=== PATIENT | female | born 1985 | race Caucasian/White ===

== ENCOUNTER 2018-03-02 12:47 | Emergency (ER) | payer SELFPAY ==
[2018-03-02] VITALS (64 sets, daily range): BP systolic 125–185; BP diastolic 82–120; PULSE 68–102; RESP 10–32; TEMP 36.7; O2SAT 91–100
--- NOTE | 2018-03-02 12:51 | ED.GENADUL_ITS ---
Discharge Plan Disposition Patient Disposition: HOME Condition: Stable Discharge Details Chief Complaint: Chest Pain Clinical Impression: Chest discomfort, Hypertension, Multiple thyroid nodules, Pancreatic abnormality Primary Care Provider: Michelle Fernandez ED Provider: Payal Millard Home Meds and New Rx's Prescriptions: New citalopram 10 mg tablet 30 mg PO DAILY Qty: 90 RF: 0 losartan 100 mg tablet 100 mg PO DAILY Qty: 30 RF: 0 Discontinued citalopram 10 mg Tablet RF: 0 losartan 25 mg Tablet RF: 0 Discharge Instructions Instructions: Chest Pain (ED), Hypertension (ED) Additional Instructions: Please return immediately to the emergency department if you develop any new or worsening symptoms or if you become otherwise concerned. It is extremely important that you are seen by her primary care doctor within the next week and follow-up for this visit. You need follow-up for hypertension, your chest discomfort that you were seen here for today, the abnormal findings of possible thyroid nodules, and abnormality of the appearance of the pancreas on CT scan. Please call [phone] if you have any difficulty establishing this appointment. Discharge Data Discharge Date/Time-TO BE ENTERED AT DEPARTURE: 03/02/18 20:38 Medical Decision Making Amee Pearl is a 33-year-old woman with a history of hypertension and anxiety presenting to the emergency department with 3 days of a feeling of an air pocket in her chest that she states is not painful but is bothersome. Patient is very well and nontoxic appearing on exam, appears mildly anxious. Hypert ensive, other benign cardiopulmonary exam. Patient does not appear to be uncomfortable. Concern for pleurisy versus costochondritis versus esophageal etiology versus PE, some possible anxiety component. Doubt ACS or hypertensive emergency. Doubt acute aortic etiology. Plan for EKG, screening labs, chest x- ray, telemetry, IV, ativan. Will monitor and reassess. Patient reports that sensation in her chest is unchanged after Ativan. She reports that her diastolic blood pressure is always between 90 and 100 when she is not taking blood pressure medication. She is unsure what her systolic blood pressure is. Labs okay. Chest x-ray okay. Pt has medication bottles from last prescription with her, will give her her home dose of losartan and citalopram. Patient reports symptoms completely unchanged. Plan for repeat troponin, repeat EKG. Will give nitroglycerin for pain. Patient reports pain completely unchanged. Blood pressure somewhat improved at 140/90. Low suspicion for aortic dissection at this time, but given patient's persistent hypertension we will plan for imaging. Patient's blood pressure 126/80. She reports no change in her symptoms at this time. Patient did report some mild nausea, Zofran given. Patient laughing in exam room, requesting crackers, drinking Mountain Dew. CTA shows possible thyroid nodules, possible pancreatic mass, motion artifact cannot fully rule out ascending aortic dissection, no PE. Given my low suspicion for aortic dissection, no further imaging indicated at this time. I do not suspect patient's symptoms are related to hypertensive emergency given significant decrease in blood pressure with no change in symptoms. Lengthy discussion with patient regarding incidental findings of thyroid and pancreas, importance of follow-up for these findings in addition to follow-up for hypertension and chest sensation. Patient placed on list for care management follow-up for PCP appointment within 1 week. I had a lengthy discussion with patient regarding return to emergency department precautions, she verbalizes understanding of the plan. Medical Records Medical records reviewed: Yes I reviewed the patient's medical records. Imaging Data Radiologic Study: Attestation: I personally reviewed and interpreted this imaging study as follows: Radiologist's impression: CTA thorax: FINDINGS: Pulmonary arteries: No pulmonary embolism identified. Aorta: Evaluation of the proximal ascending aorta is limited secondary to motion. Thyroid: There are multiple hypodensities in the thyroid concerning for nodules. These can be further evaluated with ultrasound. Lungs: Series 9 image 85 demonstrates a nonspecific 4 mm groundglass right pulmonary nodule. No consolidation. Pleural space: Normal. No pneumothorax. No pleural effusion. Heart: No pericardial effusion. Mediastinum: Gas in the esophagus which can be seen with reflux. Pancreas: There is an incompletely imaged 8mm rounded hypodensity in the pancreatic head region on series 7 image 65. This could represent a pancreatic lesion or focally dilated common bile duct. Dedicated MRI/MRCP could be considered for more accurate evaluation. Correlation with lab values suggested. Stomach and bowel: Gastric wall prominence. This can be seen with under distention or gastritis in the appropriate clinical setting. Lymph nodes: Unremarkable. No enlarged lymph nodes. There is a prominent right hilar lymph node measuring 7 mm on short axis. Bones/joints: Bony structures are age-appropriate. Soft tissues: Unremarkable. Other findings: There is motion on this examination. IMPRESSION: 1. No pulmonary embolism identified. 2.There is an incompletely imaged 8mm rounded hypodensity in the pancreatic head region on series 7 image 65. This could represent a pancreatic lesion or focally dilated common bile duct. Dedicated MRI/MRCP could be considered for more accurate evaluation. Correlation with lab values suggested. 3. Multiple hypodensities in the thyroid concerning for nodules. These can be further evaluated with ultrasound. 4. Gastric wall prominence. This can be seen with under distention or gastritis in the appropriate clinical setting. 5. Nonspecific 4 mm groundglass right pulmonary nodule. ACR White Paper guidelines (MacMahon, et al. Radiology 2017; 284(1):228-43) suggest that no follow-up is necessary. Other findings as above. CHEST X-RAY, PA AND LATERAL: The heart is normal in size. The lungs are clear. The mediastinal structures and pleura appear intact. IMPRESSION: Normal chest. Lab Data Lab results reviewed: Yes I reviewed the patient's lab results. Laboratory Tests Range/Units 03/02/18 03/02/18 03/02/18 13:15 13:15 13:15 WBC (4.4-10.8) k/cumm 5.03 RBC (4.00-5.20) m/cumm 4.44 Hgb (12.0-15.5) g/dL 13.7 Hct (36.0-46.0) % 39.1 MCV (80-95) fL 88.1 MCH (27.0-33.0) pg 30.9 MCHC (32.0-36.0) g/dL 35.0 RDW (11.7-14.6) % 12.0 Plt Count (130-400) x1000/uL 200 MPV (8.0-11.0) fL 9.7 Immature Gran % 0.2 Neutrophils % 56.2 Lymphocytes % 32.4 Monocytes % 7.8 Eosinophils % 3.0 Basophils % 0.4 Absolute Neutrophils (1.2-6.7) k/cumm 2.83 Absolute Lymphocytes (1.2-3.4) k/cumm 1.63 Absolute Monocytes (0.11-0.7) k/cumm 0.39 Absolute Eosinophils (0.0-0.7) k/cumm 0.15 Absolute Basophils (0.0-0.2) k/cumm 0.02 D-Dimer (<500) ng/mlFEU Sodium (136-145) mmol/L 138 Potassium (3.5-5.1) mmol/L 3.6 Chloride (98-107) mmol/L 100 Carbon Dioxide (21.0-32.0) mmol/L 27.8 Anion Gap (3-11) mmol/L 10.2 BUN (7-18) mg/dL 11 Creatinine (0.55-1.02) mg/dL 0.62 Estimated GFR/1.73 m2 (mL/min/1.73m2) >= 60.00 Glucose (70-100) mg/dL 106 H Calcium (8.5-10.1) mg/dL 9.4 Total Bilirubin (0.2-1.0) mg/dL 0.3 AST (15-37) U/L 24 ALT (12-78) U/L 26 Alkaline Phosphatase (46-116) U/L 61 Troponin I (0.00-0.06) ng/mL < 0.02 Total Protein (6.4-8.2) g/dL 7.7 Albumin (3.4-5.0) g/dL 4.0 Urine Color (Yellow) Urine Clarity Urine pH (5-8) Ur Specific [place] (1.005-1.025) Urine Protein (Negative) mg/dL Urine Ketones (Negative) mg/dL Urine Blood (Negative) Urine Nitrite (Negative) Urine Bilirubin (Negative) Urine Urobilinogen (Up TO 0.2) EU/dL Ur Leukocyte Esterase (Negative) Urine Glucose (Negative) mg/dL Range/Units 03/02/18 03/02/18 03/02/18 13:15 15:15 17:12 WBC (4.4-10.8) k/cumm RBC (4.00-5.20) m/cumm Hgb (12.0-15.5) g/dL Hct (36.0-46.0) % MCV (80-95) fL MCH (27.0-33.0) pg MCHC (32.0-36.0) g/dL RDW (11.7-14.6) % Plt Count (130-400) x1000/uL MPV (8.0-11.0) fL Immature Gran % Neutrophils % Lymphocytes % Monocytes % Eosinophils % Basophils % Absolute Neutrophils (1.2-6.7) k/cumm Absolute Lymphocytes (1.2-3.4) k/cumm Absolute Monocytes (0.11-0.7) k/cumm Absolute Eosinophils (0.0-0.7) k/cumm Absolute Basophils (0.0-0.2) k/cumm D-Dimer (<500) ng/mlFEU 205 Sodium (136-145) mmol/L Potassium (3.5-5.1) mmol/L Chloride (98-107) mmol/L Carbon Dioxide (21.0-32.0) mmol/L Anion Gap (3-11) mmol/L BUN (7-18) mg/dL Creatinine (0.55-1.02) mg/dL Estimated GFR/1.73 m2 (mL/min/1.73m2) Glucose (70-100) mg/dL Calcium (8.5-10.1) mg/dL Total Bilirubin (0.2-1.0) mg/dL AST (15-37) U/L ALT (12-78) U/L Alkaline Phosphatase (46-116) U/L Troponin I (0.00-0.06) ng/mL < 0.02 Total Protein (6.4-8.2) g/dL Albumin (3.4-5.0) g/dL Urine Color (Yellow) Yellow Urine Clarity Clear Urine pH (5-8) 7.0 Ur Specific [place] (1.005-1.025) 1.020 Urine Protein (Negative) mg/dL Negative Urine Ketones (Negative) mg/dL Negative Urine Blood (Negative) Negative Urine Nitrite (Negative) Negative Urine Bilirubin (Negative) Negative Urine Urobilinogen (Up TO 0.2) EU/dL 0.2 Ur Leukocyte Esterase (Negative) Negative Urine Glucose (Negative) mg/dL Negative ECG Data Attestation: I personally reviewed and interpreted this ECG (s) as follows: Interpretation: EKG shows normal sinus rhythm at 91, normal axis, precordial T wave changes, no STEMI, nondiagnostic EKG EKG #2 shows normal sinus rhythm at 71, normal axis, precordial T wave changes, no STEMI, nondiagnostic EKG [facility] General Mode of arrival: ambulatory . Date/Time Provider Initiated Documentation: 03/02/18 12:50 . Limitations to Documentation: no limitations . Information obtained by: patient, RN notes reviewed and old records reviewed . HPI Narrative: Amee Pearl is a 33-year-old woman with a history of hypertension and anxiety presenting to the emergency department with chest discomfort. Patient reports that she moved to [facility] from [facility] 2-1/2 weeks ago. She reports that her prescriptions for losartan and citalopram ran out 2 weeks ago, and she has not had them refilled. Patient reports that 3 days ago she noticed an uncomfortable sensation in her chest that feels like an air pocket. Patient reports that it does not feel like pain. Not modified by exertion, position, deep breathing, or eating. She reports that it has been essentially unchanged since onset 3 days ago, and is present from when she wakes up to when she goes to bed. She does not recall what she was doing when it first started. Has never had similar sensation in the past. She reports that she feels mildly short of breath since the discomfort started. She denies fever, cough, nausea/vomiting/diarrhea, weakness, numbness/tingling, rash, lightheadedness. LMP 3 weeks ago. Has been eating and drinking as usual. No recent travel, no recent illnesses, no unusual immobility. Related Data Home Medications Medication Instructions Recorded Confirmed citalopram 30 mg PO DAILY #90 tab 03/02/18 losartan 100 mg PO DAILY #30 tab 03/02/18 Previous Rx's Medication Instructions Recorded citalopram 30 mg PO DAILY #90 tab 03/02/18 losartan 100 mg PO DAILY #30 tab 03/02/18 Allergies Allergy/AdvReac Type Severity Reaction Status Date / Time amoxicillin Allergy Unverified 03/02/18 13:03 Penicillins Allergy Unverified 03/02/18 13:03 sulfamethoxazole Allergy Unverified 03/02/18 13:03 [From Bactrim] trimethoprim [From Bactrim] Allergy Unverified 03/02/18 13:03 Review of Systems Review of Systems Constitutional: denies fevers Eyes: denies eye pain ENT: denies facial pain, dental pain, sore throat Cardiovascular: denies chest pain, edema, reports chest discomfort Respiratory: denies cough, reports shortness of breath GI: denies abdominal pain, vomiting, diarrhea : denies flank pain MSK: denies back pain, neck pain, arthralgias, myalgias Skin: denies rash Neuro: denies headaches, lightheadedness, weakness, numbness/tingling PFSH Medical History HTN (hypertension) (Chronic) Social History Smoking/Tobacco Use Status: Current every day alcohol intake: current alcohol intake frequency: 3 or more drinks per day Alcohol type: beer substance use type: does not use Exam Narrative Exam Narrative: Constitutional: well and [id number], pleasant, conversing normally HENT: head atraumatic, normocephalic normal inspection, mucous membranes moist Eyes: conjunctiva normal, sclera normal, pupils 3mm b/l Neck: no stridor, normal ROM, trachea midline Chest: normal inspection, nontender to palpation Resp: normal work of breathing, LCTAB Cardio: normal rate, normal rhythm, no murmur appreciated GI: abdomen soft, non-tender, non-distended Back: normal inspection, no rash Skin: warm, dry, normal color, no rash Neuro: alert, not altered, grossly non-focal, normal tone Ext: no edema, no posterior calf tenderness Psych: normal mood, normal affect, normal behavior
--- NOTE | 2018-03-02 13:14 | DI.RAD_ITS ---
SYMPTOMS/DIAGNOSIS: CHEST DISCOMFORT FOR 3 DAYS CHEST X-RAY, PA AND LATERAL: The heart is normal in size. The lungs are clear. The mediastinal structures and pleura appear intact. IMPRESSION: Normal chest.
[2018-03-02] MEDS: Aspirin 81 MG CHEW 324 MG CH (13:31)
[2018-03-02 13:34] LABS: Abs Immature Grans 0.01 k/cumm (0.0-0.09); Absolute Basophil Count 0.02 k/cumm (0.0-0.2); Absolute Eosinophil Count 0.15 k/cumm (0.0-0.7); Absolute Lymphocyte Count 1.63 k/cumm (1.2-3.4); Absolute Monocyte Count 0.39 k/cumm (0.11-0.7); Absolute Neutrophil Count 2.83 k/cumm (1.2-6.7); Basophils % 0.4; HCT 39.1 % (36.0-46.0); HGB 13.7 g/dL (12.0-15.5); Immature Grans % 0.2; Lymphocytes % 32.4; Mean Corpuscular Hemoglobin 30.9 pg (27.0-33.0); Mean Corpuscular Volume 88.1 fL (80-95); Mean Platelet Volume 9.7 fL (8.0-11.0); Monocytes % 7.8; Neutrophils % 56.2; Platelet Count 200 x1000/uL (130-400); RBC 4.44 m/cumm (4.00-5.20); White Blood Cell Count 5.03 k/cumm (4.4-10.8)
[2018-03-02 13:46] LABS: ALT 26 U/L (12-78); AST 24 U/L (15-37); Alkaline Phosphatase 61 U/L (46-116); Anion Gap 10.2 mmol/L (3-11); BUN 11 mg/dL (7-18); Bilirubin, Total 0.3 mg/dL (0.2-1.0); CO2 27.8 mmol/L (21.0-32.0); CREATININE 0.62 mg/dL (0.55-1.02); Calcium 9.4 mg/dL (8.5-10.1); Chloride 100 mmol/L (98-107); Glucose 106 mg/dL (70-100); Potassium 3.6 mmol/L (3.5-5.1); Sodium 138 mmol/L (136-145); Total Protein 7.7 g/dL (6.4-8.2)
[2018-03-02 13:52] LABS: Troponin I < 0.02 ng/mL (0.00-0.06)
[2018-03-02 14:10] LABS: D-Dimer 205 ng/mlFEU (<500)
[2018-03-02] MEDS: LORazepam 0.5 MG TAB PO (15:02)
[2018-03-02 15:23] LABS: Bilirubin Negative (Negative); Blood Negative (Negative); Clarity Clear; Glucose Negative (Negative); Ketones Negative (Negative); Leukocyte Esterase Negative (Negative); Nitrite Negative (Negative); Urobilinogen 0.2 EU/dL (Up TO 0.2)
[2018-03-02] MEDS: Losartan 50 MG TAB 100 MG PO (17:20)
[2018-03-02 17:54] LABS: Troponin I < 0.02 ng/mL (0.00-0.06)
--- NOTE | 2018-03-02 18:24 | DI.CT_ITS ---
SYMPTOM/DIAGNOSIS: CHEST PAIN, HYPERTENSION. CT CHEST: CT angiography was performed with multi slice acquisition and multi planar and 3D reconstruction. CT scan of the chest was performed according to the pulmonary embolus protocol. No priors for comparison. There is no evidence of a pulmonary embolus. The thoracic aorta is intact. No evidence of dissection or aneurysm. Heart size is within normal limits. No significant pericardial effusion is seen. No findings to suggest right ventricular dysfunction are present. No mediastinal or thoracic adenopathy is present. No pleural effusion or pneumothorax is identified. The tracheobronchial tree is unremarkable. No pulmonary infiltrates are seen. There is a question of a faint 4 mm ground-glass right pulmonary nodule. On the upper abdominal images there is a round 8 mm hypodensity within the head of the pancreas adjacent to the superior mesenteric artery. This likely represents the unopacified venous return from the superior mesenteric vein. Mass is considered less likely. This may be further evaluated with a CT scan of the abdomen. (Series 7, image 65) There are several hypodense lesions seen within the thyroid gland. Ultrasound follow up as clinically appropriate. IMPRESSION: 1. No evidence of a pulmonary embolus, thoracic aortic aneurysm or dissection. 2. Multiple hypodensities seen within the thyroid gland. Further evaluation may be obtained with thyroid ultrasound on a nonemergent basis. 3. 8 mm round, hypodensity adjacent to the superior mesenteric artery in the region of the pancreatic head (Series 7, image 65). This may represent the unopacified superior mesenteric vein. Mass or dilated duct cannot be entirely excluded. CT scan of the abdomen may be obtained for further evaluation.
[2018-03-02] MEDS: Omnipaque 350 MG/ML 100 ML BTL IJ (19:11)
--- NOTE | 2018-03-02 19:56 | DI.VRAD_ITS ---
EXAM: CT Angiography Chest With Contrast EXAM DATE/TIME: 03/02/2018 6:25 PM CLINICAL HISTORY: 33 years old, female; Pain; Chest pain; Type not specified; Patient HX: Chest pain, hypertension TECHNIQUE: Axial computed tomographic angiography images of the chest with intravenous contrast using CT angiography protocol. Coronal and sagittal reformatted images were created and reviewed. MIP reconstructed images were created and reviewed. COMPARISON: CR XR CHEST 2V PA LATERAL 03/02/2018 3:34 PM FINDINGS: Pulmonary arteries: No pulmonary embolism identified. Aorta: Evaluation of the proximal ascending aorta is limited secondary to motion. Thyroid: There are multiple hypodensities in the thyroid concerning for nodules. These can be further evaluated with ultrasound. Lungs: Series 9 image 85 demonstrates a nonspecific 4 mm groundglass right pulmonary nodule. No consolidation. Pleural space: Normal. No pneumothorax. No pleural effusion. Heart: No pericardial effusion. Mediastinum: Gas in the esophagus which can be seen with reflux. Pancreas: There is an incompletely imaged 8mm rounded hypodensity in the pancreatic head region on series 7 image 65. This could represent a pancreatic lesion or focally dilated common bile duct. Dedicated MRI/MRCP could be considered for more accurate evaluation. Correlation with lab values suggested. Stomach and bowel: Gastric wall prominence. This can be seen with under distention or gastritis in the appropriate clinical setting. Lymph nodes: Unremarkable. No enlarged lymph nodes. There is a prominent right hilar lymph node measuring 7 mm on short axis. Bones/joints: Bony structures are age-appropriate. Soft tissues: Unremarkable. Other findings: There is motion on this examination. IMPRESSION: 1. No pulmonary embolism identified. 2.There is an incompletely imaged 8mm rounded hypodensity in the pancreatic head region on series 7 image 65. This could represent a pancreatic lesion or focally dilated common bile duct. Dedicated MRI/MRCP could be considered for more accurate evaluation. Correlation with lab values suggested. 3. Multiple hypodensities in the thyroid concerning for nodules. These can be further evaluated with ultrasound. 4. Gastric wall prominence. This can be seen with under distention or gastritis in the appropriate clinical setting. 5. Nonspecific 4 mm groundglass right pulmonary nodule. ACR White Paper guidelines (MacMahon, et al. Radiology 2017; 284(1):228-43) suggest that no follow-up is necessary. Other findings as above. Dictated and Authenticated by: Sophia Yoder MD. Ordering:MAKENZIE BRASWELL MD
[2018-03-02] MEDS: Ondansetron O.D.T. 4 MG TABEF (19:57)
== END 2018-03-02 20:38 | disposition home or self-care (01) ==
PROVIDERS: Emergency Provider Student in an Organized Health Care Education/Training Program; PCP Nurse Practitioner Family
DX: R07.89 Other chest pain (principal); R11.0 Nausea; R93.3 Abnormal findings on diagnostic imaging of other parts of digestive tract; R93.89 Abnormal findings on diagnostic imaging of other specified body structures; I10 Essential (primary) hypertension
CPT/HCPCS: 36415; 71275; 80053; 81025; 93005; 99285; 71046; 81003; 84484; 85025; 85379; 93010; J3490

== ENCOUNTER 2019-04-17 10:54 | Outpatient (REF) | payer OTHER, SELFPAY ==
[2019-04-17 12:07] LABS: HCT 42.6 % (36.0-46.0); HGB 14.7 g/dL (12.0-15.5); Mean Corp. HGB Concentration 34.5 g/dL (32.0-36.0); Mean Corpuscular Hemoglobin 33.3 pg (27.0-33.0); Mean Corpuscular Volume 96.6 fL (80-95); Mean Platelet Volume 10.2 fL (8.0-11.0); Platelet Count 182 x1000/uL (130-400); RBC 4.41 m/cumm (4.00-5.20); RBC Distribution Width 13.5 % (11.7-14.6); White Blood Cell Count 9.84 k/cumm (4.4-10.8)
[2019-04-17 13:37] LABS: ALT 29 U/L (14-59); AST 82 U/L (15-37); Albumin 4.5 g/dL (3.4-5.0); Alkaline Phosphatase 86 U/L (46-116); BUN 10 mg/dL (7-18); Bilirubin, Total 1.7 mg/dL (0.2-1.0); CREATININE 0.66 mg/dL (0.55-1.02); Calcium 9.4 mg/dL (8.5-10.1); Calculated LDL 204 mg/dL (<100); Chloride 96 mmol/L (98-107); Cholesterol 326 mg/dL (<200); Glucose 91 mg/dL (74-106); HDL Cholesterol 82 mg/dL (40-60); Potassium 3.3 mmol/L (3.5-5.1); Sodium 137 mmol/L (136-145); TSH (W/Ref FT4) 2.09 uIU/mL (0.36-3.74); Total Protein 8.3 g/dL (6.4-8.2); Triglyceride 203 mg/dL (<150)
[2019-04-17 13:42] LABS: Anion Gap 15.8 mmol/L (3-11); CO2 25.2 mmol/L (21.0-32.0)
[2019-04-17 14:29] LABS: COMMENT (LAB VIEW ONLY) 190.72 mg/dL; Microalb ug/mg Crea 104.1 ug/mg Cr
[2019-04-19 11:07] LABS: Hepatitis C Ab w Rflx HCV PCR Negative (Negative)
== END 2019-04-17 11:14 ==
LOC: NCHCN 10:54
PROVIDERS: PCP Nurse Practitioner Family; Visit Provider Nurse Practitioner Family
DX: I10 Essential (primary) hypertension (principal); E04.2 Nontoxic multinodular goiter; F10.10 Alcohol abuse, uncomplicated; Z11.59 Encounter for screening for other viral diseases
CPT/HCPCS: 80053; 80061; 85027; 86803; 82043; 82570; 84443

== ENCOUNTER 2019-05-02 13:52 | Outpatient (REF) | payer OTHER, SELFPAY ==
[2019-05-02 18:59] LABS: Anion Gap 9.1 mmol/L (3-11); BUN 6 mg/dL (7-18); CO2 29.9 mmol/L (21.0-32.0); CREATININE 0.59 mg/dL (0.55-1.02); Calcium 9.3 mg/dL (8.5-10.1); Chloride 97 mmol/L (98-107); Glucose 106 mg/dL (74-106); Potassium 3.8 mmol/L (3.5-5.1); Sodium 136 mmol/L (136-145)
== END 2019-05-02 14:12 ==
LOC: NCHCN 13:52
PROVIDERS: PCP Nurse Practitioner Family; Visit Provider Nurse Practitioner Family
DX: I10 Essential (primary) hypertension (principal)
CPT/HCPCS: 80048

== ENCOUNTER 2019-05-15 11:05 | Outpatient (REF) | payer OTHER, SELFPAY ==
[2019-05-15 19:37] LABS: Bilirubin Negative (Negative); Blood Trace-intact (Negative); Clarity Clear (Clear); Glucose Negative (Negative); Ketones Negative (Negative); Leukocyte Esterase Negative (Negative); Nitrite Negative (Negative); Specific Gravity 1.015 (1.005-1.025); Urobilinogen 0.2 EU/dL (Up TO 0.2)
[2019-05-15 19:54] LABS: Bacteria Negative HPF (Negative); C & S Indicated? No; Casts Negative LPF (Negative); Crystals Negative HPF (Negative); Epithelial Cells Moderate HPF (Negative); Mucus Negative (Negative); Other Cells Negative (Negative); RBC Negative HPF (0-2); WBC 0-2 HPF (0-5)
== END 2019-05-15 11:25 ==
LOC: NCHCN 11:05
PROVIDERS: PCP Nurse Practitioner Family; Visit Provider Nurse Practitioner Family
DX: I10 Essential (primary) hypertension (principal)
CPT/HCPCS: 81003; 81015

== ENCOUNTER 2019-08-02 20:53 | Outpatient (REF) | payer OTHER, SELFPAY ==
[2019-08-02 18:49] LABS: Bilirubin Negative (Negative); Blood Large (Negative); Clarity Turbid (Clear); Glucose Negative (Negative); Ketones Negative (Negative); Leukocyte Esterase Moderate (Negative); Nitrite Negative (Negative); Specific Gravity 1.025 (1.005-1.025); Urobilinogen 0.2 EU/dL (Up TO 0.2)
[2019-08-02 19:02] LABS: WBC >50 HPF (0-5)
[2019-08-02 19:03] LABS: C & S Indicated? Yes
== END 2019-08-02 21:13 ==
LOC: NCHCN 20:53
PROVIDERS: PCP Nurse Practitioner Family; Visit Provider Physician Assistant
DX: R30.0 Dysuria (principal)
CPT/HCPCS: 87077; 81003; 81015; 87086; 87186

== ENCOUNTER 2019-11-22 13:48 | Outpatient (REF) | payer OTHER, SELFPAY ==
--- NOTE | 2019-11-22 10:30 | PAPFT_PTH ---
PATIENT: NITHYA QUILES LOC: [facility]#:[id number] AGE/SX: 34/F ROOM: RE11/22/[address]: Angela Sanchez : 1985 BED: DIS: 11/22/2019 SPEC #: [id number] RECD: 11/23/19 09:32 STATUS: YASSINEMargy REQ #: [id number] FRAN: 11/22/19 10:[address]: Angela Sanchez DEPT: [facility] Cytology RECD BY: Alyce Fernando ENTERED: 11/23/19 09:33 SP TYPE: PAPFT OTHR DR: Silver Jeong Tissues: 1 - CX/ENDOCX FOR PAP SMEARS Procedures: PAP THIN PREP/[facility] Screening HPV DNA PROBE Comments: [id number]
[2019-11-22 20:39] LABS: Bilirubin Negative (Negative); Blood Trace-intact (Negative); Clarity Cloudy (Clear); Glucose Negative (Negative); Ketones Negative (Negative); Leukocyte Esterase Moderate (Negative); Nitrite Positive (Negative); Specific Gravity 1.025 (1.005-1.025); Urobilinogen 0.2 EU/dL (Up TO 0.2)
[2019-11-22 20:57] LABS: Epithelial Cells Few HPF (Negative); RBC 0-2 HPF (0-2)
[2019-11-22 20:58] LABS: Bacteria Many HPF (Negative); C & S Indicated? Yes; Casts Negative LPF (Negative); Crystals Negative HPF (Negative); Mucus Negative (Negative)
[2019-11-24 09:17] LABS: Hepatitis B Surface Ab Positive (See Note)
[2019-11-24 09:23] LABS: Hepatitis B Surface Ag Negative (Negative)
[2019-11-24 09:53] LABS: Syphilis Serology (RPR) Negative (Negative)
[2019-11-24 10:02] LABS: HIV-1/2 Ag & Ab Screen Negative (Negative)
[2019-11-24 10:12] LABS: Hepatitis C Ab w Rflx HCV PCR Negative (Negative)
[2019-11-24 15:58] LABS: Chlamydia Result Negative (Negative); GC Result Negative (Negative)
== END 2019-11-22 14:08 ==
LOC: NCHCN 13:48
PROVIDERS: PCP Nurse Practitioner Family; Visit Provider Nurse Practitioner Family
DX: Z72.89 Other problems related to lifestyle (principal); Z11.59 Encounter for screening for other viral diseases; Z11.4 Encounter for screening for human immunodeficiency virus [HIV]; Z12.4 Encounter for screening for malignant neoplasm of cervix; R30.0 Dysuria; Z11.3 Encounter for screening for infections with a predominantly sexual mode of transmission; Z11.51 Encounter for screening for human papillomavirus (HPV)
CPT/HCPCS: 86706; 86803; 87077; 87340; 87389; 87491; 87591; 88142; 81003; 81015; 86592; 87086; 87186; 87480; 87510; 87624; 87660

== ENCOUNTER 2019-12-20 11:33 | Outpatient (REF) | payer OTHER, SELFPAY ==
[2019-12-20 19:39] LABS: Bilirubin Negative (Negative); Blood Negative (Negative); Clarity Clear (Clear); Glucose Negative (Negative); Ketones Negative (Negative); Leukocyte Esterase Negative (Negative); Nitrite Negative (Negative); Specific Gravity 1.015 (1.005-1.025); Urobilinogen 0.2 EU/dL (Up TO 0.2)
== END 2019-12-20 11:53 ==
LOC: NCHCN 11:33
PROVIDERS: PCP Nurse Practitioner Family; Visit Provider Nurse Practitioner Family
DX: R30.0 Dysuria (principal)
CPT/HCPCS: 81003

== ENCOUNTER 2020-02-02 16:45 | Outpatient (REF) | payer OTHER, SELFPAY ==
[2020-02-06 22:44] LABS: Patient Race White; SARS-CoV-2 RNA Undetected (Undetected); SARS-CoV-2 Specimen Source Nasal
== END 2020-02-02 17:05 ==
LOC: NCHCN 16:45
PROVIDERS: PCP Nurse Practitioner Family; Visit Provider Nurse Practitioner Family
DX: R05 Cough (principal)
CPT/HCPCS: U0003